=== PATIENT | male | born 1980 ===

== ENCOUNTER 2017-01-26 09:00 | Day surgery (SDC) | payer BC ==
[2017-01-26] VITALS (11 sets, daily range): BP systolic 99–139; BP diastolic 49–80
[~2017-01-26] VITALS: Ht 167.6 cm; Wt 59.0 kg
[~2017-01-26 09:00] MED LIST: ceFAZolin sod 1 GM in NS 55 ML IVPB ONE
[2017-01-26] MEDS ORDERED: NKM (09:47)
[2017-01-26] MEDS ORDERED: Kenalog-40 1ml Vial ONE (10:35)
[2017-01-26] MEDS ORDERED: Lidocaine 1% 10mg/ml/Epi 0.005mg/ml 30ml vial INJ ONE (10:35)
[2017-01-26] MEDS ORDERED: Bacitracin Oint 15gm Tube TOPIC ONE (10:35)
[2017-01-26] MEDS ORDERED: Oxymetazoline 0.05% Na Spray 30ml NASAL ONE (10:35)
[2017-01-26] MEDS ORDERED: Cocaine 4% Vial TOPIC ONE (10:35)
[2017-01-26] MEDS ORDERED: Dexamethasone 4mg/ml vial ONE (11:00)
[2017-01-26] MEDS ORDERED: LR 1000ml ONE (11:00)
[2017-01-26] MEDS ORDERED: Sterile Water Irrig 1000ml IRRIG ONE (11:00)
[2017-01-26] MEDS ORDERED: Midazolam 2mg/2ml Inj ONE (11:00)
[2017-01-26] MEDS ORDERED: fentaNYL 100 mcg/2 mL IV ONE (11:00)
[2017-01-26] MEDS ORDERED: Zemuron 50mg/5ml Inj IV ONE (11:00)
[2017-01-26] MEDS ORDERED: Propofol 10mg/ml 100ml btl IV ONE (11:00)
--- NOTE | 2017-01-26 11:24 | Pre-Procedure Note/Attestation ---
Pre-Procedure Note/Attestation Complete Prior to Procedure Planned Procedure: not applicable Procedure Narrative: nasal obstruction unresponsive to medication Indications for Procedure Pre-Operative Diagnosis: septal deviation, bilateral hypertrophied inferior turbinates, obstructing nasal deformity Attestation I attest that I discussed the nature of the procedure; its benefits; risks and complications; and alternatives (and the risks and benefits of such alternatives ), prior to the procedure, with the patient (or the patient's legal indirect sales representative). I attest that, if there was a reasonable possibility of needing a blood transfusion, the patient (or the patient's legal indirect sales representative) was given the [facility] standardized written summary, pursuant to the Obed Shaheen Blood Safety Act ([place] Health and Safety Code # 1645, as amended). I attest that I re-evaluated the patient just prior to the surgery and that there has been no change in the patient's H&P, except as documented below: LUCIANO ZAZUETA Jan 26, 2017 11:24
[2017-01-26] MEDS ORDERED: Lidocaine 1% 10mg/ml/EPI 0.01mg/ml 50ml INJ ONE (11:30)
--- NOTE | 2017-01-26 13:03 | Anethesia Preoperative Eval ---
Anesthesia Pre-op PMH/ROS General Date of Evaluation: Jan 26, 2017 Time of Evaluation: 11:15 Anesthesiologist: rKisti ASA Score: ASA 1 Mallampati Score Class I : Soft palate, uvula, fauces, pillars visible Class II: Soft palate, uvula, fauces visible Class III: Soft palate, base of uvula visible Class IV: Only hard plate visible Mallampati Classification: Class I Surgeon: Neo Diagnosis: Hypertrophic turbinates. nasal polyps Surgical Procedure: Sinus surgery, turbinectomies, SMR Family History: no anesthesia problems Allergies: Coded Allergies: No Known Allergies (Unverified , 01/22/17) Medications: see eMAR Past Medical History Cardiovascular: Denies: CAD, HTN, TN, arrhythmia, other, valve dz Pulmonary: Denies: COPD, KATIE, asthma, other Gastrointestinal/Genitourinary: Denies: CRI, ESRD, GERD, other Neurologic/Psychiatric: Denies: CVA, TIA, dementia, depression/anxiety, other Endocrine: Denies: DM, hypothyroidism, other, steroids HEENT: Denies: LA JOLLA (L), LA JOLLA (R), cataract (L), cataract (R), glaucoma, other Hematology/Immune: Denies: DVT, anemia, bleeding disorder, other Musculoskeletal/Integumentary: Denies: DDD, DJD, OA, RA, edema, other PMH Narrative: Denies significant PMH PSxH Narrative: T&A, wisdom teeth extraction Anesthesia Pre-op Phys. Exam Physician Exam Last Vital Signs Date Time Temp Pulse Resp B/P Pulse Ox O2 Delivery O2 Flow Rate FiO2 01/26/17 09:47 98.6 66 18 119/75 97 Room Air Constitutional: NAD Neurologic: CN 2-12 intact Cardiovascular: RRR, no M/R/G Respiratory: CTA Gastrointestinal: S/NT/ND Airway Exam Mallampati Score: Class I MO: full ROM: full Teeth: intact Anesthesia Pre-op A/P Risk Assessment & Plan Assessment: Healthy male for sinus surgery Plan: GETA, TIVA Status Change Before Surgery: No Pre-Antibiotics Drug: Ancef Given Within 1 Hr of Incision: Yes Time Given: 11:00 TOMMY GUERRA M.D. Jan 26, 2017 13:03
--- NOTE | 2017-01-26 13:08 | Immediate Post-Op Evaluation ---
Immediate Post-Op Evalulation Immediate Post-Op Evalulation Procedure: Sinus surgery, turbinectomies, SMR Date of Evaluation: Jan 26, 2017 Time of Evaluation: 16:30 IV Fluids: 900 Estimated Blood Loss: 50 Blood Pressure Systolic: 102 Blood Pressure Diastolic: 49 Pulse Rate: 76 Respiratory Rate: 15 O2 Sat by Pulse Oximetry: 97 Temperature (Fahrenheit): 97.8 Pain Score (1-10): 0 Nausea: No Vomiting: No Complications No complications Patient Status: reacts, patent, extubated, none Hydration Status: adequate Drug: Ancef Given Within 1 Hr of Incision: Yes Time Given: 11:00 TOMMY GUERRA M.D. Jan 26, 2017 13:08
--- NOTE | 2017-01-26 16:00 | Brief Operative Note ---
Immediate Post Operative Note Operative Note Pre-op Diagnosis: septal deviation, bilateral hypertrophied inferior turbinates, obstructing nasal deformity Procedure: septoplasty, bilateral inferior turbinectomies with intramural coagulation, nasal reconstruction with septal cartilage Post-op Diagnosis: same as pre-op Surgeon: Aj Zazueta M.D. Anesthesiologist: Kristi Anesthesia: MAC Specimen: yes - septum Complications: none Condition: stable Estimated Blood Loss: minimal Drains: none Packing: telfa Implant(s) used?: Yes - septal cartilage AJ ZAZUETA Jan 26, 2017 16:00
[2017-01-26] MEDS ORDERED: LR 1000ml 1,000 ML IVLG SCH (16:40)
[2017-01-26] MEDS ORDERED: Midazolam 2mg/2ml Inj IVP PRN (16:45)
[2017-01-26] MEDS ORDERED: Meperidine 25mg/0.5ml Inj (FOR RIGORS ONLY) IV PRN (16:45)
[2017-01-26] MEDS ORDERED: Hydromorphone 0.5mg/0.5ml inj IVP PRN (16:45)
--- NOTE | 2017-01-27 02:15 | Operative Note - Dictated ---
DATE OF OPERATION: 01/26/2017 DATE OF SURGERY: 01/26/2017 SURGEON: Aj Larson M.D. DIE STAMPER: ANESTHESIOLOGIST: Dr. Berry. PREOPERATIVE DIAGNOSES: 1. Septal deviation. 2. Bilateral hypertrophied inferior turbinates. 3. Bilateral obstructing nasal deformity. POSTOPERATIVE DIAGNOSES: 1. Septal deviation. 2. Bilateral hypertrophied inferior turbinates. 3. Bilateral obstructing nasal deformity. PROCEDURES: 1. Septoplasty. 2. Bilateral inferior turbinectomies with intramural coagulation. 3. Repair of obstructing nasal deformity with septal cartilage grafts. INDICATIONS FOR SURGERY: The patient is a 36-year-old male, who complains of nasal obstruction, unresponsive to Claritin, Flonase, Nasonex, and azelastine nasal sprays. Examination revealed a severe left septal deviation, pushing up against the left hypertrophied inferior turbinates. Further examination revealed a significant hypertrophied right inferior turbinates with collapse of the posterior aspect of both the internal valves. The patient is now being brought to the operating room for surgical repair. Procedure and Findings: The patient was brought to the operating room while premedicated and placed in supine position on the operating table. A sterile marking pen was used to outline the area of collapse along the posterior alae bilaterally. The marking pen was also used to outline the area of the protruding mass along the right bony nasal pyramid just below the nasal dorsum. Examination was as previously described except the columella was found to be significantly deviated to the left obstructing the left nasal inflow tract. After the patient underwent satisfactory endotracheal intubation, he was given IV sedation. The nasal cavity was sprayed with 0.25% Newton-Synephrine. After a suitable period of vasoconstriction sterile Q-tips saturated with Betadine were used to sterilized the intranasal cavity and the lateral intranasal godinez. Approximately 26 mL of 1% Xylocaine 1:100,000 epinephrine were used to inject the nasal and septal frameworks. Less than 200 mg of cocaine were used on intranasal packing avoiding the left middle turbinate. The left middle turbinate was found to have multiple polyps. The patient was then prepped and draped in the usual sterile fashion. After a certain period of vasoconstriction, the packing was removed. Scissors covered with KY jelly were then used to remove the obstructing nasal hairs bilaterally. This area was again rinsed with Betadine solution. The back of a #15 blade was used to crosshatch between the right upper and lateral cartilage and a#15 blade was used to make an incision between the right upper and lower lateral cartilage. Extensive undermining was performed running into significant scar tissue. Examination of the area revealed a bulging of the nasal bone and cartilage located along the right side of the nose, which was taken down sharply and with rasp technique. This alleviated some of the tension on the lower part of the nose. A left inferior septal incision was then made in the left mucoperichondrial with mucoperiosteal flap was then elevated. That portion of overriding obstructing perpendicular plate of the ethmoid and vomer bone were incised in strips from their attachments and removed the field of operation. A similar procedure was performed on the cartilaginous septum maintaining good anterior and inferior support. Alarge piece of cartilage was placed in Betadine to be used grafts afterwards. Re-examination still revealed the columella to be deviated to the left. The very inferior aspect of the septum was found to be buckled to left pushing the columella to left and compromising the left nostril. A #15 blade was used to incise the inferior septal cartilage which was sharply and bluntly dissecting the surrounding tissue and removed from the field of operation. Re-examination now revealed the columella in a more midline physiologic position for breathing. A mallet and chisel was also used to remove the large left maxillary crest spur. Re-examination now revealed a septum to be in a more midline physiologic position for breathing. Bipolar intramural coagulation was performed on both inferior turbinates. An incision was made in the undersurface of both inferior turbinates and mucosa stripped from the underlying bone. The inferior turbinates then outfractured and small piece of bone removed from the pockets. Re-examination revealed persistent nasal obstruction from the bilateral collapsed internal valves. With the area to be incised, re-prepped with Betadine solution a #15 blade was used to make incision inferior to the lower cartilage. Extensive undermining was performed encountering a lack of cartilage posteriorly. The pocket was created beneath the areas previously outlined with sterile marking pen on the posterior aspect of the alar creases. All bleeding was controlled with cautery. The area was rinsed with Betadine solution. The harvested cartilage, which was soaked in Betadine solution were now brought in to the fresh sterile field. The septal cartilages were then cut to fit the areas outlined previously and placed back in the Betadine solution. With the pocket having been soaked in Betadine solution prior to working on the cartilages, the cartilages were brought into a fresh sterile field. Two sutures of 5-0 plain were sutured thru the edges of the septal cartilage. The sutures placed in the pockets and brougth out thru the skin anterioirly and posteriorly at the area outlined. The 5-0 plain sutures were then tightened and grafts placed appropriately Re-examination revealed the cartilages to be in good position. The sutures were secured to the skin with steri strips. The pockets were again rinsed with Betadine solution. Re-examination revealed no bleeding and the cartilages to be in good position. The area was rinsed with Betadine solution. A 5-0 plain was used to close both inferior lower lateral cartilage incision leaving a small opening for drainage postoperatively. A 4-0 chromic was then used to close the septal incision as well as to splint the septum. All blood and mucus was suctioned from the nose and nasopharynx area. Examination revealed the patient to have much improved bilateral nasal airway. Telfa coated with bacitracin ointment was secured into place with a suture of 3-0 silk. An external dressing consisting of paper tape, adhesive tape, and a Eric splint was then secured in place as a pressure dressing and the procedure was terminated. The patient tolerated the procedure well and left the operating room in satisfactory condition. Estimated blood loss was 30 mL. Sponge and needle count were correct. Aj Larson M.D. DR: YANET JOB#: [id number] CC: [id number]
== END 2017-01-26 18:30 | disposition home or self-care (01) ==
LOC: SUR 09:00
DX: J34.2 Deviated nasal septum (principal); J34.3 Hypertrophy of nasal turbinates; M95.0 Acquired deformity of nose
CPT/HCPCS: 30420; 30802; J0690; J1100; J1170; J2250; J2405; J2704; J3010; J7120; 94003; 94150